=== PATIENT | female | born 1940 | race Caucasian/White ===

== ENCOUNTER → 2016-10-02 | Outpatient (CLI) | payer MEDICARE, OTHER ==
[~2016-10-02] MED LIST: ASPI-482 PO; CALC-614 PO; CELE200C PO; ERGO500027 PO; EZET10TA18 PO; FERR-26 PO; LANS30CA PO; LOSA25TA4 PO; MULT-658 PO; PRAV20TA2 PO; PROLIA; SILV20CR14 TP
[2016-10-02 09:34] LABS: BASO % 1 % (0-3); EOS % 1 % (0-3); HEMOGLOBIN 12.5 g/dL (12.0-15.5); LYMPH # 1.9 x10^3/uL (1.0-4.8); LYMPH % 41 % (24-48); MEAN CORPUSCULAR HEMOGLOBIN 32 pg (25-35); MEAN CORPUSCULAR HGB CONC 35 g/dL (31-37); MEAN CORPUSCULAR VOLUME 91 fL (79-100); MONO % 8 % (0-9); NEUT % 49 % (31-73); PLATELET COUNT 245 x10^3/uL (140-400); RED BLOOD COUNT 3.95 x10^6/uL (3.50-5.40); RED CELL DISTRIBUTION WIDTH 12.7 % (11.5-14.5); WHITE BLOOD COUNT 4.7 x10^3/uL (4.0-11.0)
[2016-10-02 09:39] LABS: ALBUMIN 3.7 g/dL (3.4-5.0); CALCIUM 9.3 mg/dL (8.5-10.1); CREATININE 0.8 mg/dL (0.6-1.0); GFR 69.9; POTASSIUM 4.3 mmol/L (3.5-5.1)
[2016-10-02 09:45] LABS: PROTHROMBIN TIME PATIENT 12.1 SEC (11.7-14.0)
[2016-10-02 10:51] LABS: BILIRUBIN,URINE NEGATIVE (NEG); GLUCOSE,URINE NEGATIVE (NEG); NITRITE,URINE NEGATIVE (NEG); PH,URINE 7.5; PROTEIN,URINE NEGATIVE (NEG-TRACE); UROBILINOGEN,URINE 0.2 mg/dL (0.2 mg/dL)
[2016-10-02 11:09] LABS: BACTERIA,URINE 0 /HPF (0-FEW); RBC,URINE OCC /HPF (0-2); SQUAMOUS EPITHELIAL CELL,UR OCC /LPF; WBC,URINE 0 /HPF (0-4)
--- NOTE | 2016-10-02 13:19 | RAD ---
EXAM: CHEST 2 VIEWS History: Preop total knee replacement COMPARISON: None available. TECHNIQUE: PA and lateral chest radiographs FINDINGS: The cardiomediastinal silhouette is within normal limits. The lungs are clear bilaterally. The costophrenic sulci are clear and well demarcated bilaterally. Moderate degenerative changes thoracic spine. IMPRESSION: No radiographic evidence of an acute cardiopulmonary abnormality.
--- NOTE | 2016-10-02 14:06 | EKG ---
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 RI6.01 No previous ECG available for comparison Electronically Signed On 10-04-2016 11:14:18 CDT by Oscar Diallo
[2016-10-02 17:59] VITALS: BP 147/68
== END | disposition home or self-care (01) ==
LOC: SURGPAT 11:08
PROVIDERS: ATTEND Orthopaedic Surgery
DX: Z01.818 Encounter for other preprocedural examination (principal); M17.0 Bilateral primary osteoarthritis of knee; I10 Essential (primary) hypertension
CPT/HCPCS: 36415; 71020; 80048; 81001; 82040; 85027; 85610; 85651; 85730; 87641; 93005

== ENCOUNTER 2016-10-24 12:30 | Inpatient (IN) | payer MEDICARE, OTHER ==
[~2016-10-24] VITALS: Ht 159.4 cm; Wt 75.7 kg
--- NOTE | 2016-10-30 12:29 | PDOC1 ---
History and Physical Date of Admission Date of Admission DATE: 10/31/16 Identification/Chief Complaint Chief Complaint left knee osteoarthritis pain Problems: Source Source: Chart review History of Present Illness History of Present Illness Tanesha is a 76 year old female with bilateral knee pain that was worse on the left knee, but has travelled to her right knee. The pain started 3 years ago, recently worsening. She received x-rays and an injection into both knees on 06/05 which only provided relief for 8 days. She has not been doing her home exercise program but reports she walks a lot. She can no longer do activities she wishes to do because of her knee pain. Past Medical History Cardiovascular: HTN Past Surgical History Past Surgical History: Breast Biopsy, Cataract Removal, Other (carpal tunnel release) Family History Family History son - blood clot Social History Smoke: No ALCOHOL: none Drugs: None Current Medications Current Medications Current Medications Morphine Sulfate 5 mg/Ketorolac Tromethamine 30 mg/Ropivacaine 60 ml/ Epinephrine HCl 0.5 mg/Sodium Chloride 100 ml @ 100 mls/hr 1X PERIOP ONCE INT ART ; Start 10/31/16 at 06:00; Stop 10/31/16 at 06:59 Active Scripts Active Reported [Prolia] Silvadene (Silver Sulfadiazine) 20 Gm Cream..g. 1 Lidia TP DAILY Calcium Citrate 200 Mg Tablet 200 Mg PO BID Vitamin D2 (Ergocalciferol (Vitamin D2)) 50,000 Unit Capsule 50,000 Unit PO WEEKLY Lansoprazole 30 Mg Capsule. 1 Cap PO DAILY Celebrex (Celecoxib) 200 Mg Capsule 1 Cap PO DAILY Pravastatin Sodium 20 Mg Tablet 1 Tab PO QHS Zetia (Ezetimibe) 10 Mg Tablet 10 Mg PO HS Losartan Potassium 25 Mg Tablet 12.5 Mg PO DAILY Ferrous Sulfate 325 Mg Tablet 325 Mg PO DAILY Aspir 81 (Aspirin) 81 Mg Tablet.dr 81 Mg PO Centrum Silver Tablet (Multivits-Min/Fa/Lycopene/Lut) 1 Each Tablet 1 Each PO DAILY Allergies Allergies: Coded Allergies: Penicillins (Verified Allergy, Intermediate, Unknown, 09/29/16) Physical Exam General: Alert, Oriented X3, Cooperative, No acute distress HEENT: Atraumatic, EOMI Lungs: Normal air movement Heart: RRR Abdomen: Soft Extremities: No clubbing, No cyanosis, Normal pulses, Other (Trendelenburg gait LEFT KNEE: Thrusting gait. There is varus alignment. No masses. No detectable effusion. Tenderness on the medial and lateral joint lines. Range of motion is 8-110 degrees. There is crepitus with range of motion, and pain at the extremes of motion. The knee is stable to varus and valgus stress without subluxation or laxity. Generalized weakness in muscle strength for quadriceps and hamstrings. The skin is normal with no scars, rashes, lesions or ulcers. Light touch sensation is intact. No edema and no varicosities. Dorsalis pedis pulse is intact and capillary refill is normal. Internal rotation of the left hip supple and without pain.RIGHT KNEE: There is varus alignment. No masses. No detectable effusion. Tenderness on the medial and lateral joint lines. Range of motion is 4-110 degrees. There is crepitus with range of motion, and pain at the extremes of motion. The knee is stable to varus and valgus stress without subluxation or laxity. Generalized weakness in muscle strength for quadriceps and hamstrings. The skin is normal with no scars, rashes, lesions or ulcers. Light touch sensation is intact. No edema and no varicosities. Dorsalis pedis pulse is intact and capillary refill is normal. ) Skin: No rashes, No breakdown, No significant lesion Neuro: Normal speech, Sensation intact Psych/Mental Status: Mental status NL, Mood NL Images Images IMAGING REPORT Joint survey, hips knees and ankles Clinical information: Preoperative for total knee arthroplasty Comparison: None. Findings Bones: The angle between the right hip-ankle mechanical axis and the femoral shaft is 5. The angle between the left hip-ankle mechanical axis and the femoral shaft is 5 . The mechanical axis crosses medial to the center of the right knee indicating varus alignment. The mechanical axis crosses medial to the center of the left knee indicating severe varus alignment of the left knee Joints: There is narrowing of the right knee joint medially. The left knee joint shows severe medial joint space narrowing. The hips and ankles show minimal degenerative changes. Soft tissue: Normal. Impression: Severe varus alignment of both knees, left greater than right, with osteoarthritis changes. The difference between the mechanical axis and femoral shaft anatomic axis is 5 bilaterally. Dictated and Signed Using Voice Recognition Software Preet Dillard MD VTE Prophylaxis Ordered VTE Prophylaxis Devices: Yes VTE Pharmacological Prophylaxi: Yes Assessment/Plan Assessment/Plan We discussed the potential risks of infection, neurovascular injury, bleeding, blood clots, need for revision surgery, or other potential surgical or anesthetic complications. I recommend a left total knee arthroplasty and right knee corticosteroid injection. We discussed the expected hospitalization, and rehabilitation. She would like to return either to her own home or a son's home where there are less stairs. We will have her take the preoperative rehabilitation class. We will request medical clearance from her primary care provider Karen Treviño. DAVID CALI Oct 30, 2016 12:29
[2016-10-31] VITALS (7 sets, daily range): BP systolic 108–125; BP diastolic 51–59
[2016-10-31] MEDS ORDERED: CELECOXIB 200 MG CAPSULE. PO PRN (06:00)
[2016-10-31] MEDS ORDERED: TRANEXAMIC ACID 1,000 MG in IV NS 50ML -- 1ST BAG INJ ONE (06:00)
[2016-10-31] MEDS ORDERED: HYDROcodone/APAP 7.5/325MG 1 TAB TABLET PO PRN (06:00)
[2016-10-31] MEDS ORDERED: CLINDAMYCIN 600MG PREMIX 50 ML IV PRN (06:00)
[2016-10-31] MEDS ORDERED: MORPHINE SULFATE 5 MG, KETOROLAC TROMETHAMINE 30 MG, ROPIVacaine 0.5% PF 60 ML, EPINEPH... INT ART ONE ×5 (06:00)
[2016-10-31] MEDS ORDERED: TOBRAMYCIN POWDER 1.2 GM VIAL. ONE ×2 (06:26→11:04)
[2016-10-31] MEDS ORDERED: BUPIVACAINE MPF 0.25% 30 ML VIAL. ONE (06:26)
[2016-10-31] MEDS ORDERED: VANCOMYCIN 1 GM VIAL. ONE ×2 (06:26→11:04)
[2016-10-31] MEDS ORDERED: methylPREDNISolone ACETATE 80 MG/ML VIAL. ONE (06:26)
[2016-10-31] MEDS ORDERED: PROCHLORPERAZINE 10 MG/2 ML VIAL. IV PRN ×3 (07:00→12:15)
[2016-10-31] MEDS ORDERED: ONDANSETRON PF 4 MG/2 ML VIAL. IV PRN ×2 (07:00)
[2016-10-31] MEDS ORDERED: HYDROmorphone 2 MG/ML VIAL IV PRN ×2 (07:00)
[2016-10-31] MEDS ORDERED: fentaNYL PF VIAL 100 MCG/2 ML VIAL IV PRN ×5 (07:00→12:15)
[2016-10-31] MEDS ORDERED: MORPHINE SULFATE 2 MG/ML DISP.SYRIN. IV PRN ×3 (07:00→12:15)
[2016-10-31] MEDS ORDERED: IV RINGERS,LACTATED 1000ML 1,000 ML IV SCH ×2 (07:00)
[2016-10-31] MEDS ORDERED: LIDOCAINE 1% 1 ML SYRINGE. ID PRN ×2 (07:00)
[2016-10-31] MEDS ORDERED: TRANEXAMIC ACID 1,000 MG in IV NS 50ML -- 2ND BAG INJ ONE (08:00)
[2016-10-31] MEDS ORDERED: DEXAMETHASONE SOD PHOS 20 MG/5 ML VIAL. ONE (09:02)
[2016-10-31] MEDS ORDERED: DESFLURANE > 120 MINUTES IH ONE (09:02)
[2016-10-31] MEDS ORDERED: ROCURONIUM 50 MG/5 ML VIAL. ONE (09:02)
[2016-10-31] MEDS ORDERED: PROPOFOL 0 ML IV ONE (09:02)
[2016-10-31] MEDS ORDERED: LIDOCAINE 2% PF Vial for OR 5 ML VIAL. ONE (09:02)
[2016-10-31] MEDS ORDERED: ONDANSETRON PF 4 MG/2 ML VIAL. ONE (09:02)
[2016-10-31] MEDS ORDERED: fentaNYL PF VIAL 100 MCG/2 ML VIAL ONE (09:02)
[2016-10-31] MEDS ORDERED: MELOXICAM 7.5 MG TABLET PO ONE (09:26)
[2016-10-31] MEDS: IV RINGERS,LACTATED 1000ML 1,000 ML IV SCH ×2 (09:41→23:05)
[2016-10-31] MEDS ORDERED: GLYCOPYRROLATE 1 MG/5 ML VIAL. ONE (10:01)
[2016-10-31] MEDS ORDERED: ePHEDrine PF IN SALINE 50 MG/5 ML DISP.SYRIN IV ONE (10:05)
[2016-10-31] MEDS: IV DEXTROSE 5 %-0.45 % NACL 1,000 ML IV SCH ×2 (12:11→22:11)
[2016-10-31] MEDS ORDERED: METOCLOPRAMIDE HCL 10 MG/2 ML VIAL. IV PRN (12:15)
[2016-10-31] MEDS ORDERED: HYDROcodone/APAP 10/325 1 TAB TABLET PO PRN (12:15)
[2016-10-31] MEDS ORDERED: ZOLPIDEM 5 MG TABLET. PO PRN (12:15)
[2016-10-31] MEDS ORDERED: PROCHLORPERAZINE 5 MG TABLET. PO PRN (12:15)
[2016-10-31] MEDS ORDERED: MORPHINE SULFATE 10 MG/ML VIAL. IV PRN (12:15)
[2016-10-31] MEDS ORDERED: traMADol 50 MG TABLET PO PRN ×2 (12:15)
[2016-10-31] MEDS ORDERED: oxyCODONE/APAP 7.5/325 1 TAB TABLET PO PRN (12:15)
[2016-10-31] MEDS ORDERED: 0.9 % SODIUM CHLORIDE 10 ML DISP.SYRIN. IV PRN (12:15)
[2016-10-31] MEDS ORDERED: CALCIUM CARBONATE 500 MG TAB.CHEW PO PRN (12:15)
[2016-10-31] MEDS ORDERED: MORPHINE SULFATE 4 MG/ML DISP.SYRIN. IV PRN ×2 (12:15)
[2016-10-31] MEDS ORDERED: DEXTROSE 50% 25 GM / 50ML DISP.SYRIN. IV PRN (12:15)
[2016-10-31] MEDS ORDERED: ACETAMINOPHEN 325 MG TABLET. PO PRN (12:15)
[2016-10-31] MEDS ORDERED: diphenhydrAMINE 50 MG/ML VIAL IV PRN (12:15)
[2016-10-31] MEDS ORDERED: oxyCODONE/APAP 5/325 1 TAB TABLET PO PRN (12:15)
--- NOTE | 2016-10-31 12:36 | PDOC4 ---
Operative Note Operative Note Date of Procedure: October 31, 2016 Pre-Op Diagnosis: Osteoarthritis left knee and right knee Post-Op Diagnosis: Osteoarthritis left knee Procedure: left total knee arthroplasty and right knee corticosteroid injection. Surgeon: Sandy Dillard MD Bobbin Trucker: Celina Villegas PA-C Anesthesia: General EBL: 100 mL Specimens Obtained: left knee bone and soft tissue Complications: none Implant Company: [employer] Drains: Hemovac plus pain catheter Tourniquet time: 62 Minutes Tourniquet Pressure: 350 mm Hg Indications for Procedure: Arthritis pain unrelieved by nonoperative management. Findings: Severe osteoarthritis with bone on bone contact in all three compartments especially medially with eburnation and severe remodeling Implants used: Size 4 left bicruciate stabilized Journey II BCS cobalt chrome femoral component, size 4 left Journey nonporous tibial baseplate, size 3 -4 18 mm left Journey II BCS XLPE articular insert, 35 mm oval Malini II resurfacing patellar component Procedure in Detail: The patient was identified in the preoperative holding area, and the correct left lower extremity was marked by me. The patient was taken to the operating room where the patient was anesthetized by the Department of Anesthesia. Preoperative antibiotics were given intravenously. Tranexamic acid 1 g was given intravenously for intraoperative hemostasis. A "time-out" procedure was performed. The right knee was prepared for injection with topical betadine, and then the right knee was injected with 80 mg of DepoMedrol and 1 mL of 0.25% bupivacaine, using sterile technique. A Band-Aid was placed. The patient was positioned supine on the operative table with a tourniquet on the upper left thigh. The left lower limb was thoroughly prepped and draped in sterile fashion. An impervious stockinet and adhesive drape were used such that the skin was entirely covered. An Varela leg bean was used. The operating team wore personal exhaust-ventilated hoods. The tourniquet was inflated to 350 Hg. A midline skin incision was made with a scalpel using the patella and tibial tubercle as landmarks. Electrocautery was used for hemostasis. My data entry assistant used rake retractors. A medial parapatellar arthrotomy incision was used with extension into the distal quadriceps tendon. The patella was retracted laterally and Hohmann retractors were now used by my data entry assistant. Excess synovium, the menisci, and the cruciate ligaments were resected sharply. The patella was assessed and excess synovium and osteophytes around the patellar articulation were removed. The patella was measured with a caliper, cut freehand with a saw using caliper measurements, sized, and then drilled for an oval three-pegged patella component. Periarticular injection was used in the suprapatellar pouch and distal quadriceps muscle. Whitesides's line was assessed on the femur. An intra-medullary 5 degree cutting guide was pinned to the femur, and a distal femoral cut was made with an oscillating saw. An additional 2 mm resection was used due to the deep femoral sulcus, and deficient condyle.My data entry assistant held Hohmann retractors and an [facility] retractor to protect the medial and lateral collateral ligaments, the patellar tendon, the skin and the other soft tissues. An anterior referencing guide was applied with external rotation of 3 to match [place] s line. A 5-in-1 Journey II cutting guide was then applied and pinned to the femur. The posterior, anterior, and all chamfer cuts were made with the oscillating saw. An extramedullary guide was pinned to the tibia and rotational alignment and the planned resection thickness assessed. An external alignment amy was used to verify the planned cut in the varus-valgus plane and regarding posterior slope referencing the tibial tubercle, the tibial shaft, the ankle joint, and the second metatarsal. The upper tibia was cut made with an oscillating saw. My data entry assistant held Hohmann retractors and a posterior cruciate ligament retractor to protect the medial and lateral collateral ligaments, the patellar tendon, the skin, the peroneal nerve and the other soft tissues. The upper tibia was sized with a trial baseplate. The posterior compartment was cleared of osteophytes and loose bodies, and posterior capsule released. Lisa-articular injection was used in the posterior compartment. The box cut for a posterior stabilized component was made. A preliminary reduction was performed with a trial femur, trial tibial baseplate and trial polyethylene. Soft-tissue balancing was now performed, and extension and rotation of the alignments was checked using a guide amy in the tibial trial and a guide pin in the femur. A medial release was required, using a 10 blade scalpel, and a Flynn elevator to elevate the medial structures from the upper medial tibia. The stability was assessed using different thicknesses of tibial articular surface to find satisfactory stability and good range of motion. The rotation of the tibial component was marked on the upper tibia. Final trial reduction was now performed verifying patella tracking and tibiofemoral stability and alignment. The tibia preparation was completed with a drill, saw, and fin punch at the previously noted rotation. The final implants were verified and opened. Outer gloves were changed by the operating team. The bone cuts were washed thoroughly with the [employer] InterPulse device and dried. Two packages of Luna + Nephew Rally HV bone cement were mixed in powdered form with 1 gm of Vancomycin and 1.2 g tobramycin, then vacuum-mixed with the monomer , and placed into a cement gun. The cut surfaces of the bone were thoroughly dried with Nath-tip suction and with laparotomy sponges for cement interdigitation. The final components were cemented into place. The knee was kept at full extension while the cement hardened, and excess cement was removed. Tranexamic acid 1 g was redosed intravenously for additional intraoperative hemostasis. A final periarticular injection was used for pain relief. The tourniquet was released, and electrocautery was used for hemostasis. A final check of [id number] and stability was made, and the polyethylene implant final size was chosen. The polyethylene implant was secured to the tibial baseplate, and the knee was reduced a final time. Thorough irrigation was used. Hemovac and pain catheter were used.The arthrotomy was closed with interrupted uzsoob-sy-qmtic #1 PDS suture. The arthrotomy incision was then run with #1 STRATAFIX Symmetric PDS Plus Knotless suture. The subcutaneous tissues were closed with #2-0 Vicryl by my data entry assistant. The skin was approximated with STRATAFIX Spiral MONOCRYL Plus Knotless suture by my data entry assistant. The skin incision was then covered and reinforced with Dermabond Prineo mesh skin closure dressing. A bulky sterile gauze dressing was applied. Needle and sponge counts were correct. SANDY DILLARD MD Oct 31, 2016 12:36
[2016-10-31] MEDS: fentaNYL PF VIAL 100 MCG/2 ML VIAL IV PRN ×2 (12:47→13:12)
--- NOTE | 2016-10-31 12:57 | RAD ---
INDICATION: POST OP COMPARISON: None. IMPRESSION: 2 views of left knee obtained. Total knee arthroplasty without periprosthetic fracture or dislocation. There is a drain in the soft tissues.
[2016-10-31] MEDS: CLINDAMYCIN 600MG PREMIX 50 ML IV SCH ×2 (16:09→21:54)
[2016-10-31] MEDS: FERROUS SULFATE 325 MG TABLET. PO SCH (17:28)
[2016-10-31] MEDS: CALCIUM CARBONATE 500 MG TABLET PO SCH (17:28)
[2016-10-31] MEDS: HYDROcodone/APAP 7.5/325MG 1 TAB TABLET PO PRN (17:31)
[2016-10-31] MEDS: ASPIRIN ENTERIC COATED 325 MG TABLET.DR. PO SCH (21:00)
[2016-10-31] MEDS: ATORVASTATIN CALCIUM 10 MG TABLET. PO SCH (21:00)
[2016-10-31] MEDS: EZETIMIBE 10 MG TABLET. PO SCH (21:37)
[2016-11-01 02:36] VITALS: BP 104/49
--- NOTE | 2016-11-01 03:52 | ACF ---
Admission Forms Criteria MUSCULOSKELETAL DISEASE GRG Clinical Indications for Admission to Inpatient Care (Place 'X' for any and all applicable criteria): Hospital admission is needed for appropriate care of the patient because of 1 or more of the following: [ ]I. Fracture, dislocation, or other musculoskeletal injury requiring inpatient care(medical) as indicated by 1 or more of the following(4)(5)(6)(7) [ ]a) Vertebral fracture requiring observation for instability or neurologic compromise (8) [ ]b) Compartment syndrome (proven or cannot be ruled out during observation level of care) (9) [ ]c) Limb-threatening injury [ ]d) Major injury requiring inpatient stabilization such as traction initiation or external fixation before internal fixation or closure of complex or open fracture [ ]e) Major injury requiring inpatient treatment after emergency or observation level care (as appropriate) [ ]f) Severe pain requiring acute inpatient management [ ]g) Injury with suspicion of abuse or neglect (eg., child, dependent elderly) [ ]II. Newly diagnosed or suspected bone, joint, or orthopedic device infection (e.g., osteomyelitis, septic arthritis) needing 1 or more of the following(1)(2)(3) [ ]a) IV antibiotics that cannot be initiated in other than inpatient setting (e.g., patient too unstable or home infusion not available) [ ]b) Device removal or replacement [ ]c) Bone or soft tissue debridement [ ]d) Joint drainage (drain placement or repetitive aspirations) [ ]III. Severe rheumatologic disease (e.g., systemic lupus erythematosus, rheumatoid arthritis) with complications or comorbidities (Also use Optimal Recovery Care Criteria or General Recovery Criteria as appropriate on the basis of predominant condition), including 1 or more of the following( 10)(11)(12)(13) [ ]a) Severe infection (e.g., ESTIMATOR AND DRAFTER infection, sepsis) (14) [ ]b) Respiratory complications, including 1 or more of the following : [ ]i) Pleural effusion with respiratory compromise [ ]ii) Pulmonary hypertension with congestive failure [ ]iii) Respiratory failure [ ]iv) Pulmonary hemorrhage (15) [ ]c) Hematologic disease, including 1 or more of the following: [ ]i) Coagulopathy with bleeding [ ]ii) Thrombosis with hypercoagulable state [ ]iii) Thrombotic thrombocytopenic purpura [ ]d) Cerebritis with seizures, psychosis, or other severe abnormalities [ ]e) Vertebral destruction with monitoring needed for cervical myelopathy& possible respiratory compromise [ ]f) Exacerbation that requires inpatient treatment (e.g., intravenous immunosuppression) (16) [ ]g) Acute renal failure [ ]h) Cerebritis with seizures, psychosis, Altered mental status, or other neurologic abnormalities [ ]i) Pericardial effusion with tamponade [ ]j) Vertebral destruction, with monitoring needed for cervical myelopathy and possible respiratory compromise [ ]IV. Severe vasculitis with complications or comorbidities (Also use Optimal Recovery Care Criteria General Recovery Criteria as appropriate on the basis of predominant condition), including 1 or more of the following(11)(12)(17)(18)(19)(20) [ ]a) Exacerbation that requires inpatient treatment (e.g., intravenous immunosuppression) (19)(21) [ ]b) Pulmonary hemorrhage (15) [ ]c) ESTIMATOR AND DRAFTER vasculitis with seizures, psychosis, Altered mental status that is severe or persistent, or other severe abnormalities (22) [ ]d) Cerebral infarction [ ]e) Gastrointestinal ischemia [ ]f) Gangrene or threatened amputation [ ]g) Renal failure (16) [ ]h) Other significant complications of vasculitis ( eg., tissue or organ ischemia, organ dysfunction ) [ ]V. Severe myopathy as indicated by 1 or more of the following (28)(29) [ ]a) New onset of airway compromise or inability to swallow [ ]b) Respiratory deterioration with observation needed for impending respiratory failure [ ]c) Exacerbation that requires inpatient treatment (e.g., intravenous immunosuppression) [ ]. Severe crystal gout (arthropathy) indicated by 1 or more of the following (23)(24) [ ]a) Severe pain requiring acute inpatient management [ ]b) Exacerbation that requires inpatient treatment (e.g., intravenous treatment) [ ]VII.Rhabdomyolysis and 1 or more of the following (25)(26)(27) [ ]a) Acute renal failure [ ]b) Need for intravenous hydration after emergency or observation level care (as appropriate) [ ]c) Inability to maintain oral hydration [ ]d) Change in mental status [ ]e) Electrolyte abnormality that remains after emergency or observation level care (as appropriate) [ ]VIII Post amputation complication, as indicated by ANY ONE of the following [ ]a) Infection [ ]b) Dehiscence [ ]c) Myodesis failure [X]IX. Severe pain requiring acute inpatient management due to musculoskeletal condition [ ]X. Musculoskeletal Disease and ALL of the following: [ ]a) Symptom or finding for which emergency and observation care have failed or are not considered appropriate (Use General Criteria: Observation Care as appropriate) [ ]b) Presence of ANY ONE of the following [ ]i) A General Admission Criteria [ ]ii) A Pediatric General Admission Criteria The original [facility] [employer] content created by [facility] [employer] [facility] has been revised. The portions of the content which have been revised are identified through the use of italic text or in bold, and [facility] has neither reviewed nor approved the modified material. All other unmodified content is copyright [facility]. Please see references footnoted in the original [facility] edition 2016 Admission Criteria Met?: Yes MAURY SOTELO Nov 01, 2016 03:52
[2016-11-01] MEDS: CLINDAMYCIN 600MG PREMIX 50 ML IV SCH (04:00)
[2016-11-01 05:30] VITALS: BP 100/47
[2016-11-01] MEDS ORDERED: MAGNESIUM HYDROXIDE 2,400 MG/30 ML ORAL.SUSP. PO PRN (06:00)
[2016-11-01] MEDS: IV DEXTROSE 5 %-0.45 % NACL 1,000 ML IV SCH ×2 (06:42→06:46)
[2016-11-01] MEDS: PANTOPRAZOLE 40 MG TABLET.DR. PO SCH (07:05)
[2016-11-01] MEDS: SENNOSIDES/DOCUSATE 8.6/50MG TABLET. PO SCH (08:14)
[2016-11-01] MEDS: FERROUS SULFATE 325 MG TABLET. PO SCH ×2 (08:14→17:05)
[2016-11-01] MEDS: CALCIUM CARBONATE 500 MG TABLET PO SCH ×2 (08:14→17:05)
[2016-11-01] MEDS: HYDROcodone/APAP 7.5/325MG 1 TAB TABLET PO PRN ×3 (08:15→23:46)
[2016-11-01] MEDS: ASPIRIN ENTERIC COATED 325 MG TABLET.DR. PO SCH ×2 (08:15→21:00)
[2016-11-01] MEDS: MELOXICAM 7.5 MG TABLET PO SCH (08:15)
[2016-11-01] MEDS: MULTIVITAMIN with MINERAL TABLET. PO SCH (09:00)
[2016-11-01] MEDS ORDERED: NON FORMULARY ITEM (Multivits-Min/Fa/Lycopene/Lut (Centrum Silver Tablet) 1 EACH) PO SCH (09:00)
[2016-11-01] MEDS ORDERED: MELOXICAM 7.5 MG TABLET PO SCH (09:00)
--- NOTE | 2016-11-01 09:52 | PDOC ---
PROGRESS NOTES Subjective Subjective Doing well. States pain is very minimal. Objective Vital Signs Vital Signs Date Time Temp Pulse Resp B/P (MAP) Pulse Ox O2 Delivery O2 Flow Rate FiO2 11/01/16 08:15 Room Air 11/01/16 05:30 98.1 57 20 100/47 (64) 95 98.1 10/31/16 13:52 2.0 Physical Exam Dressing dry. Pain catheter and Hemovac in place. Good dorsiflexion and plantarflexion of the foot with no evidence of neurovascular injury or DVT. Calves are soft and non-tender. Negative Homans. Peripheral pulses and light touch sensation intact. Imaging Postoperative x-rays reviewed by me, showing satisfactory total knee replacement , with no apparent complications. Assessment Assessment POD #1 left TKA Problems: Plan Plan of Care Continue POC including DVT prophylaxis and physical therapy. DAVID CALI Nov 01, 2016 09:52
[2016-11-01] MEDS: LOSARTAN POTASSIUM 25 MG TABLET. PO SCH (12:22)
[2016-11-01 12:40] VITALS: BP 111/53
[2016-11-01] MEDS ORDERED: BISACODYL 10 MG SUPP.RECT. PR PRN (16:00)
[2016-11-01 18:58] VITALS: BP 123/52
[2016-11-01] MEDS: ATORVASTATIN CALCIUM 10 MG TABLET. PO SCH (21:00)
[2016-11-01] MEDS: EZETIMIBE 10 MG TABLET. PO SCH (21:00)
[2016-11-02 05:45] LABS: HEMATOCRIT 27.3 % (36.0-47.0); HEMOGLOBIN 9.3 g/dL (12.0-15.5)
[2016-11-02 06:44] VITALS: BP 120/55
[2016-11-02] MEDS: PANTOPRAZOLE 40 MG TABLET.DR. PO SCH (06:44)
[2016-11-02] MEDS: MELOXICAM 7.5 MG TABLET PO SCH (08:25)
[2016-11-02] MEDS: ASPIRIN ENTERIC COATED 325 MG TABLET.DR. PO SCH ×2 (08:26→21:11)
[2016-11-02] MEDS: SENNOSIDES/DOCUSATE 8.6/50MG TABLET. PO SCH (08:26)
[2016-11-02] MEDS: FERROUS SULFATE 325 MG TABLET. PO SCH ×2 (08:26→16:44)
[2016-11-02] MEDS: CALCIUM CARBONATE 500 MG TABLET PO SCH ×2 (08:26→16:44)
[2016-11-02] MEDS: MULTIVITAMIN with MINERAL TABLET. PO SCH (08:26)
[2016-11-02] MEDS: HYDROcodone/APAP 7.5/325MG 1 TAB TABLET PO PRN ×4 (08:27→21:33)
[2016-11-02] MEDS: LOSARTAN POTASSIUM 25 MG TABLET. PO SCH (09:00)
--- NOTE | 2016-11-02 12:39 | PDOC ---
PROGRESS NOTES Subjective Subjective Pain controlled. No major complaints. Objective Vital Signs Vital Signs Date Time Temp Pulse Resp B/P (MAP) Pulse Ox O2 Delivery O2 Flow Rate FiO2 11/02/16 12:34 Room Air 11/02/16 09:00 61 115/51 11/02/16 06:44 97.5 21 96 97.5 10/31/16 13:52 2.0 Physical Exam Postop dressing, Hemovac, and pain catheter have been removed. Prineo mesh intact. Tiny amount of blood drainage at middle of incision. ABD and knee net in place. Calf soft and nontender with a negative Mihai's sign. Good AROM of ankle. Minimal erythema/warmth. Labs Laboratory Tests Test 11/02/16 04:00 Hemoglobin 9.3 g/dL (12.0-15.5) Hematocrit 27.3 % (36.0-47.0) Mean Corpuscular Hemoglobin Concent 34 g/dL (31-37) Laboratory Tests Test 11/02/16 04:00 Hemoglobin 9.3 g/dL (12.0-15.5) Hematocrit 27.3 % (36.0-47.0) Mean Corpuscular Hemoglobin Concent 34 g/dL (31-37) Assessment Assessment POD #2 TKA Problems: Plan Plan of Care Continue POC. Discharge planning for tomorrow. Aspirin 325 mg po BID and mobilization for DVT prophylaxis. DAVID CALI Nov 02, 2016 12:39
--- NOTE | 2016-11-02 14:50 | PATHOLOGY ---
PATHOLOGY REPORT * * * * * * * * FINAL DIAGNOSIS: Segments of bone and soft tissue, left total knee arthroplasty: - Advanced degenerative arthritis. (JPM:alexander; 11/02/2016) REPORT ELECTRONICALLY SIGNED BY: Dmitriy Martin M.D. DATE/TIME: 11/02/2016 14:50 * * * * * * * * GROSS PATHOLOGY: The specimen is received in formalin, labeled "[place]-left knee tissue" is a 160 g, 9.5 x 8.3 x 5.8 cm aggregate of yellow-brooke, irregular, hard fragments of bone with attached yellow lobular adipose tissue and whitish pink to brown, membranous material. The articular surfaces of the specimens display focal areas of erosion and eburnation. Sectioning through the specimens reveals that the articular surfaces ranging in thickness from less than 0.1 cm up to 0.3 cm. Student Records Specialist sections of the specimen are submitted in cassette A1 following decalcification. (AKA; 11/01/2016) INITIAL CPT CODE(S): A; 24706, 14875 Professional services performed [place] [facility] [address] Technical services performed by [facility] at [address] [place] [address] [address], [place] [address]. SPECIMEN(S) RECEIVED: A.Left knee tissue CLINICAL HISTORY: Left knee OA PATIENT: ANURADHA LAUREANO /AGE: 2 1940 (Age: 76) PATIENT #: [id number] ALT CASE #: SPECIMEN COLLECTION DATE: 10/31/2016 SPECIMEN RECEIVED DATE: 10/31/2016 [facility] - [address] [place] [address] - PHONE: [phone] * * * END OF REPORT * * *
[2016-11-02 19:45] VITALS: BP 115/55
[2016-11-02] MEDS: EZETIMIBE 10 MG TABLET. PO SCH (21:11)
[2016-11-02] MEDS: ATORVASTATIN CALCIUM 10 MG TABLET. PO SCH (21:11)
[2016-11-03 06:04] VITALS: BP 100/50
[2016-11-03] MEDS: PANTOPRAZOLE 40 MG TABLET.DR. PO SCH (06:31)
[2016-11-03 07:00] VITALS: BP 122/37
[2016-11-03 08:40] LABS: HEMATOCRIT 29.1 % (36.0-47.0); HEMOGLOBIN 9.9 g/dL (12.0-15.5)
[2016-11-03] MEDS: FERROUS SULFATE 325 MG TABLET. PO SCH (09:36)
[2016-11-03] MEDS: ASPIRIN ENTERIC COATED 325 MG TABLET.DR. PO SCH (09:36)
[2016-11-03] MEDS: MELOXICAM 7.5 MG TABLET PO SCH (09:36)
[2016-11-03] MEDS: CALCIUM CARBONATE 500 MG TABLET PO SCH (09:36)
[2016-11-03] MEDS: SENNOSIDES/DOCUSATE 8.6/50MG TABLET. PO SCH (09:36)
[2016-11-03] MEDS: MULTIVITAMIN with MINERAL TABLET. PO SCH (09:36)
[2016-11-03] MEDS: LOSARTAN POTASSIUM 25 MG TABLET. PO SCH (09:42)
[2016-11-03 11:00] VITALS: BP 129/48
[2016-11-03 15:00] VITALS: BP 140/58
--- NOTE | 2016-11-03 15:53 | PDOC3 ---
Discharge Summary Visit Information Date of Admission: Oct 31, 2016 Date of Discharge: Nov 03, 2016 Admitting Diagnosis: left knee osteoarthritis pain Brief Hospital Course Allergies Allergies Coded Allergies Type Severity Reaction Last Updated Verified Penicillins Allergy Intermediate Unknown 09/29/16 Yes Vital Signs Vital Signs Date Time Temp Pulse Resp B/P (MAP) Pulse Ox O2 Delivery O2 Flow Rate FiO2 11/03/16 15:00 97.7 75 18 140/58 (85) 98 Room Air 97.7 11/02/16 21:11 2.0 Lab Results Laboratory Tests Test 11/02/16 04:00 11/03/16 08:15 Hemoglobin 9.3 g/dL (12.0-15.5) 9.9 g/dL (12.0-15.5) Hematocrit 27.3 % (36.0-47.0) 29.1 % (36.0-47.0) Mean Corpuscular Hemoglobin Concent 34 g/dL (31-37) 34 g/dL (31-37) Laboratory Tests Test 11/03/16 08:15 Hemoglobin 9.9 g/dL (12.0-15.5) Hematocrit 29.1 % (36.0-47.0) Mean Corpuscular Hemoglobin Concent 34 g/dL (31-37) Brief Hospital Course 76 year old female who presented with left knee osteoarthritis, for elective total knee arthroplasty. The patient underwent left total knee arthroplasty under general anesthesia the day of admission. Perioperative antibiotics and DVT prophylaxis were used. Postoperatively physical therapy and case management were consulted. The patient progressed and is stable for discharge. Discharge Information Condition at Discharge: Stable Follow Up: Weeks (2) Disposition/Orders: D/C to Home Scheduled Calcium Citrate (Calcium Citrate), 200 MG PO BID, (Reported) Celecoxib (Celebrex), 1 CAP PO DAILY, (Reported) Ergocalciferol (Vitamin D2) (Vitamin D2), 50,000 UNIT PO WEEKLY, (Reported) Ezetimibe (Zetia), 10 MG PO HS, (Reported) Ferrous Sulfate (Ferrous Sulfate), 325 MG PO DAILY, (Reported) Lansoprazole (Lansoprazole), 1 CAP PO DAILY, (Reported) Losartan Potassium (Losartan Potassium), 12.5 MG PO DAILY, (Reported) Multivits-Min/Fa/Lycopene/Lut (Centrum Silver Tablet), 1 EACH PO DAILY, ( Reported) Pravastatin Sodium (Pravastatin Sodium), 1 TAB PO QHS, (Reported) Silver Sulfadiazine (Silvadene), 1 OTONIEL TP DAILY, (Reported) Miscellaneous Medications Aspirin (Aspir 81), 81 MG PO, (Reported) [Prolia], (Reported) Patient Instructions Patient Instructions Patient Instructions Continue to WBAT with walker. Keep dressing dry and intact. F/U with [facility] in 10-14 days. Call for appointment. Physical therapy for TKA Continue DVT prophylaxis with aspirin 325mg twice daily. DAVID CALI Nov 03, 2016 15:53
[2016-11-03] MEDS ORDERED: HYDR-2762 PO (16:07)
[2016-11-03] MEDS: HYDROcodone/APAP 7.5/325MG 1 TAB TABLET PO PRN (16:45)
[2016-11-07] MEDS ORDERED: ERGOCALCIFEROL (VITAMIN D2) 50,000 UNIT CAPSULE. PO SCH (09:00)
== END 2016-11-03 16:50 | disposition home or self-care (01) | DRG 470 ==
LOC: OPSVCIP 10-31 08:32 → 4 SOUTHEST 10-31 13:28 → 4 NORTH 11-02 17:50
PROVIDERS: ADMIT Orthopaedic Surgery; ATTEND Orthopaedic Surgery
PROC: 3E0U33Z Introduction of Anti-inflammatory into Joints, Percutaneous Approach (ICD-10-PCS; 2016-10-31)
PROC: 0SRD0J9 Replacement of Left Knee Joint with Synthetic Substitute, Cemented, Open Approach (ICD-10-PCS; principal; 2016-10-31 10:00)
DX: M17.12 Unilateral primary osteoarthritis, left knee (principal); I10 Essential (primary) hypertension; Z88.0 Allergy status to penicillin
CPT/HCPCS: 36415; 73560; 85014; 85018; 86850; 86900; 86901; 88305; 88311; J0171; J1040; J1100; J1885; J2001; J2270; J2405; J2704; J2795; J3010; J3260; J3370; J3490; J7030; J7120; 97110; 97116; 97150; 97535; C1769

== ENCOUNTER 2018-01-19 07:38 | Emergency (ER) | payer MEDICARE, OTHER ==
[~2018-01-19] VITALS: Ht 154.9 cm; Wt 73.0 kg
[~2018-01-19 07:38] MED LIST changes: -FERR-26 PO; +FERR325T14 PO; +HYDR-2762 PO; -LOSA25TA4 PO; +LOSA25TA5 PO
--- NOTE | 2018-01-19 07:53 | PHYS DOC ---
Adult General Chief Complaint Chief Complaint: LOWER EXT PAIN HPI HPI Patient is a 77 year old female who presented to ER today for evaluation of right ankle pain, right knee pain, right hip pain after she fell at home 4 days ago. Patient says she tripped on her feet, she hit the chair, fell down the right side 4 days ago denies any head or neck injury, no shoulder pain, no elbow pain. Patient complaints of pain on the right hip and right ankle whenever she walked. Review of Systems Review of Systems Constitutional: Denies fever or chills [] Eyes: Denies change in visual acuity, redness, or eye pain [] HENT: Denies nasal congestion or sore throat [] Respiratory: Denies cough or shortness of breath [] Cardiovascular: No additional information not addressed in HPI [] GI: Denies abdominal pain, nausea, vomiting, bloody stools or diarrhea [] : Denies dysuria or hematuria [] Musculoskeletal: Denies back pain, complaint of right ankle pain, right knee pain, right pelvic pain. Integument: Denies rash or skin lesions [] Neurologic: Denies headache, focal weakness or sensory changes [] Endocrine: Denies polyuria or polydipsia [] All other systems were reviewed and found to be within normal limits, except as documented in this note. Current Medications Current Medications Current Medications Medications (Trade) Dose Ordered Sig/Marcela Start Time Stop Time Status Last Admin Dose Admin Acetaminophen/ Hydrocodone Bitart (Lortab 5/325) 1 tab 1X ONCE 01/19/18 08:00 01/19/18 08:03 DC 01/19/18 08:12 1 TAB Allergies Allergies Allergies Coded Allergies Type Severity Reaction Last Updated Verified Penicillins Allergy Intermediate Unknown 09/29/16 Yes Physical Exam Physical Exam Constitutional: Well developed, well nourished, no acute distress, non-toxic appearance. [] HENT: Normocephalic, atraumatic, bilateral external ears normal, oropharynx moist, no oral exudates, nose normal. [] Eyes: PERRLA, EOMI, conjunctiva normal, no discharge. [] Neck: Normal range of motion, no tenderness, supple, no stridor. [] Cardiovascular:Heart rate regular rhythm, no murmur [] Lungs & Thorax: Bilateral breath sounds clear to auscultation [] Abdomen: Bowel sounds normal, soft, no tenderness, no masses, no pulsatile masses. [] Skin: Warm, dry, no erythema, no rash. [] Back: No tenderness, no CVA tenderness. [] Extremities: Right ankle is tender to palpation at the right malleous area, right knee is tender with contusion, right knee joint is stable, Right hip is tender to palpation...pelvis is stable. Neurologic: Alert and oriented X 3, normal motor function, normal sensory function, no focal deficits noted. [] Psychologic: Affect normal, judgement normal, mood normal. [] Current Patient Data Vital Signs Vital Signs Date Time Temp Pulse Resp B/P (MAP) Pulse Ox O2 Delivery O2 Flow Rate FiO2 01/19/18 07:42 97.8 65 16 168/74 (105) 100 Room Air 97.8 EKG EKG [] Radiology/Procedures Radiology/Procedures [] Course & Med Decision Making Course & Med Decision Making Pertinent Labs and Imaging studies reviewed. (See chart for details) [][facility] [address] [place] [address] IMAGING REPORT Signed PATIENT: ANURADHA LAUREANO ACCOUNT: [id number] : 1940 LOCATION: ER AGE: 77 SEX: F EXAM STATUS: PRE ER ORD. PHYSICIAN: DEBI ARIAS DO REASON: fell, right ankle pain PROCEDURE: ANKLE RIGHT 3V EXAM: 1. Frontal pelvis with two-view right hip. 2. Right knee 3 views. 3. Right ankle 3 views. HISTORY: Fall with right hip, knee and ankle pain. COMPARISON: None. FINDINGS: No fractures are appreciated within the pelvis or right hip. The joint spaces of both hips are maintained. There is relatively bulky enthesopathic ossification at the greater trochanters on the left greater than right. There are moderate to severe degenerative changes of the lower lumbar spine. There is moderate to severe tricompartmental osteoarthritis at the right knee. There is a small joint effusion. There is mild lateral subluxation of the tibia. No fractures are identified. Small subcutaneous varices are noted laterally. No fractures are appreciated at the right ankle. Joint spaces and alignment are maintained at the mortise. There is moderate osteoarthritis within the mid foot and subtalar articulation with mild flattening of Boehler's angle. There is a moderate plantar calcaneal spur. Phleboliths and benign soft tissue calcifications are noted in the distal leg. IMPRESSION: 1. No fracture throughout. 2. Moderate to severe tricompartmental osteoarthritis of the right knee. 3. Moderate subtalar and midfoot osteoarthritis. Electronically signed by: Ulises Paul MD (01/19/2018 8:48 AM) [facility] DICTATED and SIGNED BY: HINA PAUL MD DATE: 01/19/18 0845 Drag Disclaimer Dragon Disclaimer This electronic medical record was generated, in whole or in part, using a voice recognition dictation system. Departure Departure Impression: Primary Impression: Right ankle sprain Additional Impressions: Right knee sprain Contusion of hip, right Disposition: 01 HOME, SELF-CARE Condition: STABLE Referrals: DANETTE THOMASON MD (PCP) FOLLOW UP WITH YOUR DOCTOR NEXT WEEK. Patient Instructions: Ankle Pain, Hip Pain, Knee Pain Scripts Hydrocodone/Apap 5-325 (NORCO 5-325 TABLET) 1 Each Tablet 1 TAB PO TID PRN for PAIN for 4 Days, #12 TAB Prov: DEBI ARIAS DO 01/19/18 Problem Qualifiers DEBI ARIAS DO Jan 19, 2018 07:53
[2018-01-19] MEDS: HYDROcodone/APAP 5/325MG 1 TAB TABLET PO ONE (08:12)
--- NOTE | 2018-01-19 08:51 | RAD ---
EXAM: 1. Frontal pelvis with two-view right hip. 2. Right knee 3 views. 3. Right ankle 3 views. HISTORY: Fall with right hip, knee and ankle pain. COMPARISON: None. FINDINGS: No fractures are appreciated within the pelvis or right hip. The joint spaces of both hips are maintained. There is relatively bulky enthesopathic ossification at the greater trochanters on the left greater than right. There are moderate to severe degenerative changes of the lower lumbar spine. There is moderate to severe tricompartmental osteoarthritis at the right knee. There is a small joint effusion. There is mild lateral subluxation of the tibia. No fractures are identified. Small subcutaneous varices are noted laterally. No fractures are appreciated at the right ankle. Joint spaces and alignment are maintained at the mortise. There is moderate osteoarthritis within the mid foot and subtalar articulation with mild flattening of Boehler's angle. There is a moderate plantar calcaneal spur. Phleboliths and benign soft tissue calcifications are noted in the distal leg. IMPRESSION: 1. No fracture throughout. 2. Moderate to severe tricompartmental osteoarthritis of the right knee. 3. Moderate subtalar and midfoot osteoarthritis. Electronically signed by: Ulises Paul MD (01/19/2018 8:48 AM) [facility]
[2018-01-19] MEDS ORDERED: HYDR-971 PO (10:27)
[2018-01-19 10:38] VITALS: BP 184/74
== END 2018-01-19 10:38 | disposition home or self-care (01) ==
LOC: ER 07:38
DX: S93.401A Sprain of unspecified ligament of right ankle, initial encounter (principal); S83.91XA Sprain of unspecified site of right knee, initial encounter; S70.01XA Contusion of right hip, initial encounter; Z88.0 Allergy status to penicillin; W01.0XXA Fall on same level from slipping, tripping and stumbling without subsequent striking against object, initial encounter; Y93.89 Activity, other specified; Y92.098 Other place in other non-institutional residence as the place of occurrence of the external cause; Y99.8 Other external cause status
CPT/HCPCS: 73502; 73562; 73610; 99284

== ENCOUNTER → 2018-09-17 | Outpatient (CLI) | payer MEDICARE, OTHER ==
[~2018-09-17] MED LIST changes: +ASPI81TA50 PO; -HYDR-2762 PO; +HYDR-2765 PO; +HYDR-3164 PO; +LOSA1TAB25 PO; -LOSA25TA5 PO; +LOSA25TA54 PO; +RANI150T2 PO
[2018-09-17 11:56] LABS: BILIRUBIN,URINE NEGATIVE (NEG); CLARITY,URINE CLOUDY; COLOR,URINE YELLOW; NITRITE,URINE NEGATIVE (NEG); PH,URINE 6.5; PROTEIN,URINE NEGATIVE (NEG-TRACE); UROBILINOGEN,URINE 0.2 mg/dL (0.2 mg/dL)
[2018-09-17 12:11] LABS: SQUAMOUS EPITHELIAL CELL,UR FEW /LPF
[2018-09-17 12:12] LABS: BACTERIA,URINE 0 /HPF (0-FEW); RBC,URINE 0 /HPF (0-2)
--- NOTE | 2018-09-17 12:25 | EKG ---
[facility] [address] [place] [address] Test Date: 2018-09-17 Test Time: 12:27:12 Pat Name: ANURADHA LAUREANO Department: Room: Gender: F Travel Ot: TV : 1940 Requested By: SANDY SHANKAR Order Number: [id number] Reading MD: Emile Roper Measurements Intervals [place] Rate: 60 P: 6 TX: 190 QRS: 38 QRSD: 82 T: 41 QT: 414 QTc: 414 Interpretive Statements SINUS RHYTHM Electronically Signed On 09-19-2018 13:03:35 CDT by Emile Roper
[2018-09-17 12:28] LABS: BASO % 1 % (0-3); EOS % 1 % (0-3); HEMATOCRIT 35.5 % (36.0-47.0); HEMOGLOBIN 12.2 g/dL (12.0-15.5); LYMPH # 1.6 x10^3/uL (1.0-4.8); LYMPH % 34 % (24-48); MEAN CORPUSCULAR HEMOGLOBIN 32 pg (25-35); MEAN CORPUSCULAR HGB CONC 35 g/dL (31-37); MEAN CORPUSCULAR VOLUME 91 fL (79-100); MONO # 0.4 x10^3/uL (0.0-1.1); MONO % 8 % (0-9); NEUT # 2.7 x10^3uL (1.8-7.7); NEUT % 56 % (31-73); PLATELET COUNT 236 x10^3/uL (140-400); RED BLOOD COUNT 3.88 x10^6/uL (3.50-5.40); RED CELL DISTRIBUTION WIDTH 12.9 % (11.5-14.5); WHITE BLOOD COUNT 4.8 x10^3/uL (4.0-11.0)
[2018-09-17 12:37] LABS: PROTHROMBIN TIME PATIENT 12.7 SEC (11.7-14.0)
[2018-09-17 12:49] LABS: ALBUMIN 3.8 g/dL (3.4-5.0); CALCIUM 9.1 mg/dL (8.5-10.1); CREATININE 0.8 mg/dL (0.6-1.0); GFR 69.6; POTASSIUM 3.9 mmol/L (3.5-5.1)
--- NOTE | 2018-09-17 15:01 | RAD ---
PA and lateral chest x-ray compared to similar study dated October 02, 2016 for right knee replacement. FINDINGS: The lungs are clear. The cardiomediastinum is grossly unremarkable. There is atherosclerosis of the aorta. Extensive degenerative changes are seen throughout the thoracic spine. IMPRESSION: 1. No acute cardiopulmonary abnormality. Electronically signed by: Adan Burden MD (09/17/2018 2:58 PM) [id number]
== END | disposition home or self-care (01) ==
LOC: SURGPAT 11:14
PROVIDERS: ATTEND Orthopaedic Surgery
DX: Z01.818 Encounter for other preprocedural examination (principal); M17.11 Unilateral primary osteoarthritis, right knee; I70.0 Atherosclerosis of aorta; Z88.0 Allergy status to penicillin
CPT/HCPCS: 36415; 71046; 80048; 81001; 82040; 82306; 85025; 85610; 85651; 85730; 87086; 87641; 93005